=== PATIENT | male | born 2000 | race Caucasian/White ===

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

== ENCOUNTER 2019-07-31 20:21 | Emergency (ER) | payer OTHER ==
[~2019-07-31] VITALS: Ht 175.3 cm; Wt 66.9 kg
[2019-07-31 20:40] VITALS: Ht 175.3 cm; Wt 66.9 kg
[2019-07-31 22:34] VITALS: BP 138/71
== END 2019-07-31 22:34 | disposition home or self-care (01) ==
LOC: ED 20:21
DX: J02.8 Acute pharyngitis due to other specified organisms (principal)

== ENCOUNTER 2020-07-18 23:22 | Emergency (ER) | payer OTHER ==
[~2020-07-18] VITALS: Ht 175.3 cm; Wt 67.1 kg
[2020-07-18 23:35] VITALS: Ht 175.3 cm; Wt 67.1 kg
[2020-07-19 01:55] VITALS: BP 122/70
== END 2020-07-19 01:55 | disposition home or self-care (01) ==
LOC: ED 23:22
DX: S42.001A Fracture of unspecified part of right clavicle, initial encounter for closed fracture (principal); V49.69XA Unspecified car occupant injured in collision with other motor vehicles in traffic accident, initial encounter; Y93.I9 Activity, other involving external motion; Y92.413 State road as the place of occurrence of the external cause; Y99.8 Other external cause status